=== PATIENT | female | born 1955 | race American Indian/Alaskan Native ===

== ENCOUNTER 2017-01-10 11:39 | Outpatient (CLI) | payer BC ==
--- NOTE | 2017-01-10 14:16 | Fluoroscopy Report ---
UPPER GI WITH AIR-CONTRAST HISTORY: Dyspepsia, reflux disease. FINDINGS: Correlation is made with the barium swallow performed 02/06/14. Partial gastrectomy with Keyana-en-Y formation and LAP band are again noted. Deglutition is normal. There is no evidence for esophageal mass, stricture or hiatal hernia hernia. Occasional tertiary contractions consistent with spasm were noted in the esophagus. The LAP band remains in the same position. No evidence for slippage. There is easy passage of the oral contrast through the lap band into the gastric remnant and small bowel loops. No ulceration, mass or obstruction. No reflux was witnessed during this exam. IMPRESSION: Stable appearance of the surgical changes and LAP band. No evidence for slippage or reflux. Mild esophageal dysmotility. No significant change is appreciated since 02/06/14.
== END 2017-01-10 11:40 | disposition home or self-care (01) ==
LOC: XRAY 11:39
PROVIDERS: ATTEND Specialist
DX: K21.9 Gastro-esophageal reflux disease without esophagitis (principal); Z90.3 Acquired absence of stomach [part of]
CPT/HCPCS: 74247

== ENCOUNTER 2017-01-19 15:04 | Outpatient (CLI) | payer BC ==
--- NOTE | 2017-01-20 09:51 | Cat Scan Report ---
CT ABDOMEN AND PELVIS WITH CONTRAST: 01/19/17 15:04:00 CLINICAL: Abdominal pain. COMPARISON: None. TECHNIQUE: Volumetric acquisition and 1.25 millimeter scan reconstructions after the uneventful intravenous injection of 100 cc Omnipaque 300. Consent was obtained prior to the administration of contrast. Oral contrast was also given. FINDINGS: Abdomen: Clear lung bases. Normal liver size, contour and overall density. 1.4 cm right hepatic segment V cyst and a few Gucci calcifications in the liver. The gallbladder and bile ducts are normal. Status post gastric bypass procedure with a Keyana-en-Y as well as status post LAP band procedure. The Lap band is in normal position. The bypassed stomach is normal. Nonspecific thickening of the distal esophagus. Normal duodenum and pancreas. The spleen is small with a few granulomatous calcifications. Normal adrenal glands and kidneys. The renal collection systems and ureters are not dilated. No urinary mass, cyst or calculus. Normal aorta and inferior vena cava. Normal small bowel.Mild diverticulosis but otherwise normal ascending, transverse and descending colon. A few diverticula retained high density barium from an upper GI nine days ago. No signs of diverticulitis. The appendix is well limited normal. No mass, lymphadenopathy or ascites.No pneumoperitoneum. Pelvis: Absence of the uterus and a normal vaginal cuff. Normal urinary bladder.Normal small ovaries. Normal rectum with a small volume of high density barium in the rectum from recent upper GI. Mild sigmoid diverticulosis and no diverticulitis. Bone windows demonstrate no bone lesion. IMPRESSION:1. Wall thickening of the distal esophagus suggests possible esophagitis. 2. Normal appearance of the stomach status post gastric bypass procedure with a Keyana-en-Y and status post LAP band procedure. 3. Normal biliary tract and pancreas. 4. Mild diverticulosis but no diverticulitis. 5. Status post hysterectomy.
== END 2017-01-19 15:05 | disposition home or self-care (01) ==
LOC: SPVIMAG 15:04
PROVIDERS: ATTEND Internal Medicine Gastroenterology
DX: K57.30 Diverticulosis of large intestine without perforation or abscess without bleeding (principal); K76.89 Other specified diseases of liver; D73.89 Other diseases of spleen; Z90.710 Acquired absence of both cervix and uterus
CPT/HCPCS: 74177; Q9967

== ENCOUNTER 2017-02-23 15:31 | Outpatient (CLI) | payer BC | END 2017-02-23 15:32 | disposition home or self-care (01) | LOC: LABHHL 15:31 | PROVIDERS: ATTEND Internal Medicine Gastroenterology | DX: Z12.11 Encounter for screening for malignant neoplasm of colon (principal) | CPT/HCPCS: 88305 ==

== ENCOUNTER 2017-08-18 16:40 | Outpatient (CLI) | payer BC ==
--- NOTE | 2017-08-19 08:19 | Mammography Report ---
BILATERAL MAMMOGRAM: FINDINGS: The breasts are almost entirely fat (<25% glandular). No mass, distortion, suspicious calcification, or skin change is seen. No significant change when compared to exams dating back to 2015. CAD was utilized. IMPRESSION: Negative mammogram. There is no mammographic evidence of malignancy. RECOMMENDATION: Follow-up per ACS guidelines. BI-RADS CATEGORY: 1 = Negative ACR BI-RADS MAMMOGRAPHIC CODES: 0 = Needs additional imaging evaluation; 1 = Negative; 2 = Benign; 3 = Probably benign; 4 = Suspicious; 5 = Malignant; 6 = Known biopsy-proven malignancy COMMENT: 1. Dense breast tissue, i.e., adenosis, fibrocystic changes, etc., may obscure an underlying neoplasm. 2. Approximately 10% of cancers are not detected with mammography. 3. A negative mammography report should not delay biopsy if a clinically suspicious mass is present. COMMENT: Patient follow-up letters are generated in [employer].
== END 2017-08-18 16:41 | disposition home or self-care (01) ==
LOC: SPVWC 16:40
PROVIDERS: ATTEND Internal Medicine
DX: Z12.31 Encounter for screening mammogram for malignant neoplasm of breast (principal)
CPT/HCPCS: 77067; G0202